=== PATIENT | female | born 1970 | race Caucasian/White ===

== ENCOUNTER 2020-11-04 17:53 | Emergency (ER) | payer OTHER ==
[~2020-11-04] VITALS: Ht 177.8 cm; Wt 118.2 kg
[~2020-11-04 17:53] MED LIST: BENZ1TAB10 PO; DULO30CA89 PO; HALO10 PO; IBUP-2070 PO; ONDA4TAB4 PO; OXYC1TAB6 PO; TAMS-13 PO; TRAZ-257 PO
[2020-11-04 21:15] LABS: BASOPHILS % (AUTO) 0.7 % (0.0-2.0); EOSINOPHILS % (AUTO) 2.3 % (1.0-6.0); HEMATOCRIT 30.3 % (36-46); HEMOGLOBIN 10.1 g/dL (12.0-16.0); LYMPHOCYTES # (AUTO) 2.1 K/uL (1.0-4.8); MEAN CORPUSCULAR HEMOGLOBIN 28.4 pg (26.0-34.0); MEAN CORPUSCULAR HGB CONC 33.2 G/dL (31.0-37.0); MEAN CORPUSCULAR VOLUME 86 fL (80-100); MONOCYTES # (AUTO) 1.2 K/uL (0.1-1.0); MONOCYTES % (AUTO) 13.5 % (2.0-9.0); NEUTROPHILS # (AUTO) 5.2 K/uL (1.8-7.7); NEUTROPHILS % (AUTO) 59.5 % (40.0-70.0); PLATELET COUNT (AUTO) 269 K/uL (150-450); RED BLOOD CELL COUNT(AUTO) 3.54 MIL/uL (4.00-5.20); RED CELL DISTRIBUTION WIDTH 13.9 % (11.5-14.5)
[2020-11-04 21:29] LABS: ANION GAP 8 mmol/L (8-16); CALCIUM, TOTAL 8.9 mg/dL (8.8-10.5); CARBON DIOXIDE 27 mmol/L (22-29); CHLORIDE 104 mmol/L (98-107); GLOMERULAR FILTR. RATE CALC > 60 mL/min (>60); GLUCOSE,RANDOM 100 mg/dL (70-110); POTASSIUM 3.4 mmol/L (3.5-5.1); SODIUM SERUM 139 mmol/L (136-145); UREA NITROGEN, BLOOD 13 mg/dL (7-18)
[2020-11-04 21:42] LABS: COVID AG,FIA SOURCE NASOPHARYNGEAL
[2020-11-04 21:43] LABS: B-TYPE NATRIURETIC PEPTIDE 155 pg/mL (0-100)
[2020-11-04] MEDS ORDERED: LORazepam 1 MG TABLET PO ONE ×2 (21:45→23:00)
[2020-11-04 21:55] LABS: ALANINE AMINOTRANSFERASE 58 U/L (12-78); ALBUMIN 3.6 g/dL (3.4-5.0); ALKALINE PHOSPHATASE 118 U/L (46-116); ASPARTATE AMINOTRANSFERASE 42 U/L (15-37); BILIRUBIN,TOTAL 0.8 mg/dL (0.1-1.0); CREATINE KINASE, TOTAL ONLY 466 U/L (26-192); HCG,QUANTITATIVE 1 mIU/mL (0-6); TOTAL PROTEIN, SERUM 7.9 g/dL (6.4-8.2)
[2020-11-04] MEDS ORDERED: POTASSIUM CHLORIDE 20 MEQ ER TABLET PO ONE (23:00)
[2020-11-04] MEDS ORDERED: ASPIRIN 81 MG CHEWABLE TABLET PO ONE (23:00)
[2020-11-05 03:17] VITALS: BP 132/78
== END 2020-11-05 03:20 | disposition home or self-care (01) ==
LOC: EMS 17:57
DX: R06.02 Shortness of breath (principal); G47.00 Insomnia, unspecified; R60.0 Localized edema; M79.89 Other specified soft tissue disorders; F41.9 Anxiety disorder, unspecified; F31.9 Bipolar disorder, unspecified; F20.9 Schizophrenia, unspecified; F17.210 Nicotine dependence, cigarettes, uncomplicated; F19.90 Other psychoactive substance use, unspecified, uncomplicated; Z20.822 Contact with and (suspected) exposure to COVID-19
CPT/HCPCS: 71045; 80053; 82550; 83880; 84484; 84702; 85025; 87040; 93005; 99285; 36415-L1; 36415-TC